=== PATIENT | female | born 1995 ===

== ENCOUNTER 2025-08-14 14:32 | Outpatient (AMB) | payer MEDICAID, SELFPAY ==
[2025-08-14 14:44] VITALS: BP 109/73; PULSE 75; RESP 16; TEMP 36.4; O2SAT 96; BMI 44.4
--- NOTE | 2025-08-14 14:44 | OBCLNT_ITS ---
Vital Signs 08/14/25 14:44 Height 1.57 m Height Method Stated Weight 110.28 kg Weight Measurement Method Standing Scale BMI 44.4 BP 109/73 Blood Pressure Source Automatic Cuff Blood Pressure Location Left Upper Arm Position Sitting Respiration 16 Pulse 75 Pulse Source Monitor Temp 97.6 F Temp Source Oral Pulse Oximetry (%) 96 Oxygen Delivery Method Room Air Allergies/Home Meds Allergies & Medications Allergies No Known Allergies Allergy (Verified 08/14/25 14:45) Medication Reconciliation vitamins-iron fumarate 66 mg iron-folic acid 1 mg tablet tab PO 08/14/25 [History Confirmed 08/14/25] vits no.126-ferrous fum 28 mg iron-folic acid 800 mcg tablet (Classic ) 1 tab PO DAILY 90 days #90 tabs 08/14/25 [Rx] Intake Visit Data Collection New Patient or Established: New Patient (never been to [facility]) Reason for Visit:: INITIAL CARE Seen by Clinical Staff ONLY (RN/MA): No Cell Feed Department Supervisor Required: No Do You Feel Safe at Home: Yes Authorities Contacted: N/A PCP or OBGYN visit in last 3 months: Yes Hx Now: Yes Are you currently on any form of Control: No Last menstrual period: 01/16/25 Pain Present Currently: No Pain Scale Used: Cam-Tsang/Numerical Pain scale:: 0 Smoking Status Smoking Status: Never smoker Immunizations Flu Vaccine in the Last 12 Months: No Flu Vaccine Exclusion Criteria: Refused by Patient Questionnaires Covid-19 Vaccine Questionnaire Has patient been vacinated for Covid-19 Have you been vacinated for Covid-19: No PHQ-9 PHQ-2 Over the last 2 weeks, how often have you been bothered by any of the following problems? 1. Little interest or pleasure in doing things: not at all 2. Feeling down, depressed, or hopeless: not at all Total score: 0 PHQ-9 3. Trouble falling or staying asleep, or sleeping too much: Not at all 4. Feeling tired or having little energy: Not at all 5. Poor appetite or overeating: Not at all 6. Feeling bad about yourself - or that you are a failure or have let yourself or your family down: Not at all 7. Trouble concentrating on things, such as reading the newspaper or watching television: Not at all 8. Moving or speaking so slowly that other people could have noticed? - Or the opposite - being so fidgety or restless that you have been moving around a lot more than usual: not at all 9. Thoughts that you would be better off or of hurting yourself in some way: Not at all Total score: 0 Source: Developed by Drs. Luis Alberto Abebe, Coleen Lainez, Godwin Souza and colleagues, with an educational mary from [employer] - is now [employer]. Depression screen completed yes Social History Living Situation History Marital Status: Life Partner Lives With: Family Housing: House Tobacco History Smoking Status: Never smoker Second Hand Smoke Exposure: No Alcohol History Alcohol Intake: Never Substance Use History Substance Use: FORMER [employer] USER Domestic Abuse History Do You Feel Safe at Home: Yes History of Present Illness HPI Narrative ?30 Years old G?5P?4at gestational age 30 weeks ?based on last menstrual period of dated?.01/16/2025 No complaints so far Here for first visit LPS ?2023 Ultrasound today and c/w dates / she states no PNC so far medical problems Allergies NKDA Surgical history denies social history as noted OB Initial Visit OB Flowsheet OB Flowsheet Initial Weight: Not Recorded Date -?-?-?-?-?-?-?-?-?-?-?-?- EGA Weight BP Alb Glu CTX Pres Fundal ht FHR Mov Dilation Station Effacement Hx Notes Visit Note 08/14/25 -?-?-?-?-?-?-?-?-?-?-?-?- 30w 0d 110.28 kg 109/73 absent transverse 30 1 33 active Menstrual History Menstrual reliability: definite Flow: normal Menstrual regularity: regular Monthly: Yes Age at menarche: 18 On control pills at conception: No Associated symptoms (LMP): Denies amenorrhea, nausea, vomiting, fatigue, breast tenderness, urinary frequency, irritability, bloating or other OB History : 5 Para: 4 # of Living Children: 4 Delivery History 1st : Child's name: LAYA date: 08/15/15 sex: female Gestational age at delivery (weeks): 41 Delivery type: vaginal Delivery complications: NONE History of depression before or after : No 2nd : Child's name: OFELIA date: 01/08/19 sex: female Gestational age at delivery (weeks): 41 Delivery type: vaginal Delivery complications: NONE History of depression before or after : No 3rd : Child's name: EDI date: 04/28/23 sex: male Gestational age at delivery (weeks): 41 Delivery type: vaginal Delivery complications: NONE History of depression before or after : No 4th : Child's name: DIVYA date: 11/26/24 sex: female Gestational age at delivery (weeks): 41 Delivery type: vaginal Delivery complications: NONE History of depression before or after : No Infection History & Risk Evaluation History of STDs: none Genetic Screening & History Genetic Screening/Teratology Counseling - Includes patient, baby's father, or anyone in either family with: 1. Patient's age 35 years or older as of estimated date of delivery: No 2. Thalassemia (Syriac, Frisian, Mediterranean, or Background); MCV less than 80: No 3. Neural Tube Defect (Meningomyelocele, Spina Bifida, or Anencephaly): No 4. Congenital Heart Defect: No 5. Down Syndrome: No 6. Luca-Sachs (Ashkenazi Restorationist, Cajun, Irish Luxembourger): No 7. Mandy Disease (Ashkenazi Restorationist): No 8. Familial Dysautonomia (Ashkenazi Restorationist): No 9. Sickle Cell Disease or Trait (): No 10. Hemophilia or other blood disorders: No 11. Muscular Dystrophy: No 12. Cystic Fibrosis: No 13. Woodson's Chorea: No 14. Mental Retardation/Autism: No 15. Other inherited genetic or chromosomal disorder: No 16. Maternal Metabolic Disorder (EG,TYPE 1 Diabetes, PKU): No 17. Patient or baby's father had a child with defects not listed above: No 18. Recurrent loss or a stillbirth: No 19. Medications (including supplements, vitamins, herbs or otc drugs)/illicit/recreational drugs/alcohol since last menstrual period: No 20. Any other: No Infection History 1. Live with someone with TB or exposed to TB: No 2. Rash or viral illness since last menstrual period: No 3. Hepatitis B,C: No Other (see comments) Source: [employer] Review of Systems Constitutional Constitutional: Denies fatigue Gastrointestinal Gastrointestinal: Denies bloating, Denies nausea and Denies vomiting Genitourinary Genitourinary: Denies amenorrhea and Denies urinary frequency Psychiatric Psychiatric: Denies irritability Endocrine Endocrine: Denies fatigue Office Procedures [facility] LOC & Office Proc's Nursing/Assessment Patient Status: Initial/New Patient OB Clinic Nursing Assessment: Medication Reconciliation, Update PMH in EMR and Vital Signs OB Clinic Coordination of Care: Complex Care and Chronic Disease 1-5, Consent,records obtained, informed consent, Education Simp Pt/Fam, 1 Ins Authorization, Lab and Imaging orders, Results/Orders obtained and Staff clarify orders Special Needs: Heart tones New Patient Charge New Patient Point Assignment: [id number] New Patient Point Charge: COMPREHENSIVE OPHTHALMOLOGIST Level 4 ([id number]) Assessment & Plan Diagnosis / Problem List (1) Late care: Status: Acute (2) : Status: Acute Qualifiers: Weeks of gestation: 30 weeks Qualified Code(s): Z3A.30 - 30 weeks gestation of Additional Assessment at 30 weeks by LMP and she is 31,1 week by bedside US / ordered pNV and labs and will order level 2 ob scan / follow up in 2 weeks / declined flu vaccine
== END 2025-08-14 15:30 | disposition home or self-care (01) ==
LOC: HODSOBC 14:32
PROVIDERS: PCP Physician Assistant; Referring Provider Physician Assistant; Supervising Provider Obstetrics & Gynecology; Visit Provider Obstetrics & Gynecology
DX: O09.33 Supervision of pregnancy with insufficient antenatal care, third trimester (principal); Z3A.30 30 weeks gestation of pregnancy
CPT/HCPCS: 99204; G0463